=== PATIENT | female | born 1985 | race American Indian/Alaskan Native ===

== ENCOUNTER 2019-03-13 10:32 | Emergency (ER) | payer SELFPAY ==
[2019-03-13 10:54] VITALS: BP 125/81
--- NOTE | 2019-03-13 11:20 | Emergency Department Report ---
Upper Extremity - HPI Chief Complaint: Extremity Injury, Upper Stated Complaint: (R) WRIST DISCOMFORT/PAIN Time Seen by Provider: 03/13/19 11:16 Upper Extremity: Right Wrist, Right Hand, Right Thumb Occurred When: >5 Days Mechanism: Unsure Symptoms: Yes Pain with Movement, No Deformity, No Limited Range of Movement, No Numbness, No Weakness, No Swelling, No Bruising/Ecchymosis, No Laceration or Abrasion Other History: Ms Ledezma is a 33-year-old female who presents with right thumb and wrist pain for the last month. She does repetitive movements on her job and her hands. Miild pain. Worsen with brace. No direct trauma. ED Review of Systems ROS: Stated complaint: (R) WRIST DISCOMFORT/PAIN Other details as noted in HPI Constitutional: denies: fever, malaise Skin: denies: rash, lesions Neurological: denies: numbness, paresthesias ED Past Medical Hx - Past Medical History Previous Medical History?: No - Surgical History Past Surgical History?: No - Social History Smoking Status: Current Every Day Smoker Substance Use Type: Alcohol - Medications Home Medications: Home Medications Medication Instructions Recorded Confirmed Last Taken Type Ibuprofen [Motrin 800 MG tab] 800 mg PO TID 5 Days #15 tablet 03/13/19 Unknown Rx Upper Extremity Exam - Exam General: Vital signs noted. No distress. Alert and acting appropriately. Head and Torso: No HEENT Abnormality Shoulder Exam: Yes Normal Range of Motion in Shoulder, No Shoulder Tenderness, No Clavicle Tenderness, No Shoulder Deformity, No AC Joint Tenderness Arm Exam: No Arm/Humerus Tenderness, No Arm Deformity Elbow: Yes Normal Range of Motion in Elbow, No Elbow Tenderness, No Elbow Deformity Forearm: No Forearm Tenderness, No Forearm Deformity, No Pain with Pronation, No Pain with Supination Wrist: Yes Normal ROM in Wrist, No Wrist Tenderness, No Wrist Deformity, No Snuffbox Tenderness, No Pain with Axial Thumb Compression Hand: Yes Hand Tenderness, Yes Digit Tenderness (tenderness over radial aspect of thumb), No Hand Deformity CMS Exam: Yes Normal Distal Pulses, Yes Normal Capillary Refill, Yes Normal Distal Sensation, No Broken Skin ED Course Vital Signs 03/13/19 10:51 Temperature 98.3 F Pulse Rate 68 Respiratory 16 Rate Blood Pressure 125/81 O2 Sat by Pulse 100 Oximetry ED Medical Decision Making - Medical Decision Making De Quervain's tenosynovitis prescribed ibuprofen and referred to orthopedic surgeon Right hand Masood wrap was applied to the affected extremity under my supervision. After application the extremity was neurovascularly intact with acceptable alignment.Insert Masood wrap Critical care attestation.: If time is entered above; I have spent that time in minutes in the direct care of this critically ill patient, excluding procedure time. ED Disposition Clinical Impression: De Quervain's tenosynovitis, right Disposition: DC- TO HOME OR SELFCARE Is pt being admited?: No Does the pt Need Aspirin: No Condition: Stable Instructions: De Quervain Disease (ED), Tenosynovitis (ED) Prescriptions: Ibuprofen [Motrin 800 MG tab] 800 mg PO TID 5 Days #15 tablet Forms: Work/School Release Form(ED)
[2019-03-13] MEDS ORDERED: IBUPROFEN PO ONE (11:21)
== END 2019-03-13 12:34 | disposition home or self-care (01) ==
LOC: ED 10:32
DX: M65.4 Radial styloid tenosynovitis [de Quervain] (principal); F17.200 Nicotine dependence, unspecified, uncomplicated